=== PATIENT | female | born 1995 | race Caucasian/White ===

== ENCOUNTER → 2018-09-15 | Outpatient (CLI) | payer OTHER ==
[~2018-09-15] MED LIST: ALBU90OI6 INH; ESCI10 PO; FLUO10 PO; FLUSAL1005 INH; FLUSAL2505 INH; IBUP600 PO; IRON240 MG PO; Keflex500 MG PO; MELO7.5 PO; Naprosyn500 MG PO; Norco 5-325 Ta1 EACH PO; Nuvaring Vagin1 EACH VG; QUET25 PO; TOPI50 PO; TRAM50 PO; TRAZ50 PO; Zofran Odt8 MG SL
== END | disposition home or self-care (01) ==
LOC: LAB EV 12:06 → LAB SHORT 12:06
DX: N12 Tubulo-interstitial nephritis, not specified as acute or chronic (principal)
CPT/HCPCS: 87077; 87086; 87186

== ENCOUNTER 2020-07-18 18:28 | Emergency (ER) | payer OTHER ==
[~2020-07-18] VITALS: Ht 162.6 cm; Wt 104.3 kg
[~2020-07-18 18:28] MED LIST changes: +IBUP800 PO; +SERT50 PO
== END 2020-07-18 19:51 | disposition home or self-care (01) ==
LOC: ER 18:28
DX: S83.91XA Sprain of unspecified site of right knee, initial encounter (principal); F17.210 Nicotine dependence, cigarettes, uncomplicated; Z91.040 Latex allergy status; Z91.02 Food additives allergy status; Z91.018 Allergy to other foods; W01.0XXA Fall on same level from slipping, tripping and stumbling without subsequent striking against object, initial encounter
CPT/HCPCS: 73562-RT; 99283-25

== ENCOUNTER → 2020-10-29 | Outpatient (CLI) | payer OTHER | END | disposition home or self-care (01) | LOC: LAB SHORT 15:16 → LAB EV 15:16 | DX: Z33.1 Pregnant state, incidental (principal) | CPT/HCPCS: 84702 ==

== ENCOUNTER 2021-07-01 19:56 | Inpatient (IN) | payer OTHER ==
[~2021-07-01] VITALS: Ht 162.6 cm; Wt 112.7 kg
[2021-07-01] MEDS ORDERED: ESCI10 PO (20:19)
[2021-07-01 20:43] LABS: BASOPHILS ABSOLUTE AUTO 0.08 K/mm3 (0.00-0.23); BASOPHILS PERCENT AUTO 1 % (0-2); EOSINOPHILS ABSOLUTE AUTO 0.21 K/mm3 (0.00-0.68); EOSINOPHILS PERCENT AUTO 2 % (0-6); Hematocrit 34.4 % (33.0-51.0); Hemoglobin 11.3 g/dL (11.5-16.0); IMMATURE GRAN ABSOLUTE AUTO 0.07 K/mm3 (0.00-0.10); IMMATURE GRAN PERCENT AUTO 1 % (0-1); LYMPHOCYTES ABSOLUTE AUTO 3.01 K/mm3 (0.84-5.20); LYMPHOCYTES PERCENT AUTO 30 % (21-46); MONOCYTES ABSOLUTE AUTO 0.66 K/mm3 (0.16-1.47); MONOCYTES PERCENT AUTO 7 % (4-13); Mean Corpuscular HGB 25.1 pg (26.0-34.0); Mean Corpuscular HGB Conc 32.8 g/dL (31.5-36.5); Mean Corpuscular Volume 76 fL (80-100); NEUTROPHILS ABSOLUTE AUTO 5.92 K/mm3 (1.96-9.15); NEUTROPHILS PERCENT AUTO 60 % (41-73); Platelet Count 120 K/mm3 (150-400); RDW Coefficient Variation 14.5 % (11.7-14.2); RDW Standard Deviation 39.5 fL (35.1-46.3); Red Blood Cell Count 4.51 M/mm3 (3.80-5.20); White Blood Cell Count 9.95 K/mm3 (4.00-11.30)
[2021-07-01 21:21] LABS: Influenza A, PCR NEGATIVE (NEGATIVE); Influenza B, PCR NEGATIVE (NEGATIVE); Resp Syncytial Virus, PCR NEGATIVE (NEGATIVE); SARS-Cov-2 (COVID-19) PCR, MMC NEGATIVE (NEGATIVE)
[2021-07-03] MEDS ORDERED: IBUP800 PO (09:16)
[2021-07-03] MEDS ORDERED: PRENATAL TABLE1 EAC2 (09:16)
--- NOTE | 2021-07-03 09:22 | NUR ---
D/C INSTRUCTIONS DISCUSSED AND SIGNED. EXPERIENCED MOM WILLIE NB AND SELF CARE WELL. NO QUESTIONS OR CONCERNS AT THIS TIME. PLAN D/C HOME SOON RIDE ARRIVES.
--- NOTE | 2021-07-03 10:18 | NUR ---
D/C HOME WITH BABY
== END 2021-07-03 10:09 | disposition home or self-care (01) | DRG 807 ==
LOC: OBS 19:56 → BC 19:58 → OBS 20:05 → BC 20:06
PROVIDERS: ADMIT Advanced Practice Midwife
PROC: 10E0XZZ Delivery of Products of Conception, External Approach (ICD-10-PCS; principal; 2021-07-02)
DX: O48.0 Post-term pregnancy (principal); Z37.0 Single live birth; Z3A.40 40 weeks gestation of pregnancy; Z91.040 Latex allergy status; Z88.7 Allergy status to serum and vaccine; Z79.899 Other long term (current) drug therapy
CPT/HCPCS: 0241U; 36415; 85025; 86850; 86900; 86901; A9270; J1885; J2590; J7120

== ENCOUNTER → 2023-10-17 | Outpatient (CLI) | payer OTHER ==
[~2023-10-17] MED LIST changes: +PRENATAL TABLE1 EAC2
[2023-10-17 18:39] LABS: Source, Urine Clean Catch
[2023-10-17 19:37] LABS: Appearance, Urine Clear (Clear); Bilirubin, Urine Neg (Neg); Blood, Urine Neg (Neg); Color, Urine Yellow (P-Yellow); Glucose Qualitative, Urine Neg (Neg); Ketones, Urine 1+ (Neg); Leukocyte Esterase, Urine 3+ (Neg); Nitrite, Urine Pos (Neg); Protein, Urine 1+ (Neg); Urobilinogen, Urine NORM (Normal)
[2023-10-17 19:42] LABS: BASOPHILS ABSOLUTE AUTO 0.07 K/mm3 (0.00-0.23); BASOPHILS PERCENT AUTO 0 % (0-2); EOSINOPHILS ABSOLUTE AUTO 0.18 K/mm3 (0.00-0.68); EOSINOPHILS PERCENT AUTO 1 % (0-6); Hematocrit 35.7 % (33.0-51.0); Hemoglobin 12.1 g/dL (11.5-16.0); IMMATURE GRAN ABSOLUTE AUTO 0.09 K/mm3 (0.00-0.10); IMMATURE GRAN PERCENT AUTO 1 % (0-1); LYMPHOCYTES ABSOLUTE AUTO 2.88 K/mm3 (0.84-5.20); LYMPHOCYTES PERCENT AUTO 18 % (21-46); MONOCYTES ABSOLUTE AUTO 0.65 K/mm3 (0.16-1.47); MONOCYTES PERCENT AUTO 4 % (4-13); Mean Corpuscular HGB Conc 33.9 g/dL (31.5-36.5); Mean Corpuscular Volume 83 fL (80-100); NEUTROPHILS PERCENT AUTO 75 % (41-73); Platelet Count 172 K/mm3 (150-400); RDW Coefficient Variation 14.6 % (11.7-14.2); RDW Standard Deviation 44.1 fL (35.1-46.3); Red Blood Cell Count 4.32 M/mm3 (3.80-5.20); White Blood Cell Count 15.67 K/mm3 (4.00-11.30)
[2023-10-17 19:54] LABS: Bacteria Many /hpf; Red Blood Cells, Urine 0-2 /hpf (0-2); Squamous Epithelial Cells Few /hpf (Few)
[2023-10-19 16:24] LABS: HEPATITIS B SURFACE ANTIGEN Negative (Negative)
[2023-10-19 17:37] LABS: HEPATITIS C AB CIA INTERP Negative (Negative); HEPATITIS C ANTIBODY CIA INDEX <0.02 IV
[2023-10-19 18:05] LABS: HIV 1,2 COMBO ANTIGEN/ANTIBODY Negative (Negative)
== END | disposition home or self-care (01) ==
LOC: LAB SHORT 18:35 → LAB 18:35
PROVIDERS: Registered Nurse Community Health
DX: Z34.91 Encounter for supervision of normal pregnancy, unspecified, first trimester (principal); S91.301A Unspecified open wound, right foot, initial encounter
CPT/HCPCS: 81001; 84443; 86803; 87070; 87075; 87077; 87086; 87147; 87186; 87205; 87340; 87389

== ENCOUNTER → 2024-02-15 | Outpatient (CLI) | payer OTHER | LOC: LAB 12:53 → LAB SHORT 12:53 | DX: Z33.1 Pregnant state, incidental (principal) | CPT/HCPCS: 87081; 87150 ==

== ENCOUNTER 2024-03-17 13:27 | Inpatient (IN) | payer OTHER ==
[~2024-03-17] VITALS: Ht 160 cm; Wt 95.5 kg
[2024-03-17] VITALS (12 sets, daily range): BP systolic 98–131; BP diastolic 55–75
[2024-03-17] MEDS ORDERED: Lactated Ringer's 1,000 ML IV ONE (14:31)
[2024-03-17] MEDS ORDERED: FentaNYL 2mcg/ml-Bup 0.1% Epd 250 ML EPI PRN (14:35)
[2024-03-17] MEDS ORDERED: ePHEDrine Sulfate 50 MG/ML 1ML Injection XX PRN (14:35)
[2024-03-17] MEDS ORDERED: Ondansetron HCl 2 MG / ML 2ML Vial IV PRN (14:35)
[2024-03-17] MEDS ORDERED: Carboprost Tromethamine 250 MCG/ML 1ML Amp IM PRN (14:35)
[2024-03-17] MEDS ORDERED: Methylergonovine Maleate 0.2MG / ML 1ML Amp IM PRN (14:35)
[2024-03-17] MEDS ORDERED: Acetaminophen 500 MG Tab PO PRN (14:35)
[2024-03-17] MEDS ORDERED: Lactated Ringer's 1,000 ML IV PRN (14:35)
[2024-03-17] MEDS ORDERED: Misoprostol 200 MCG Tab PR PRN (14:35)
[2024-03-17] MEDS ORDERED: Oxytocin 10 Unit / ML Vial IM PRN (14:35)
[2024-03-17] MEDS ORDERED: Misoprostol 200 MCG Tab BC PRN (14:35)
[2024-03-17] MEDS ORDERED: OXYTOCIN/RINGER'S LACTATE 500 ML IV PRN (14:35)
[2024-03-17] MEDS ORDERED: Lactated Ringer's 1,000 ML IV SCH ×3 (14:35→20:25)
[2024-03-17] MEDS ORDERED: Tranexamic Acid 100 ML IV SCH (14:35)
[2024-03-17] MEDS ORDERED: Calcium Carbonate 500 MG Tab Chew PO SCH (14:40)
[2024-03-17 14:58] LABS: Hematocrit 33.7 % (33.0-51.0); Hemoglobin 11.4 g/dL (11.5-16.0); Mean Corpuscular HGB 27.9 pg (26.0-34.0); Mean Corpuscular HGB Conc 33.8 g/dL (31.5-36.5); Mean Corpuscular Volume 83 fL (80-100); Platelet Count 156 K/mm3 (150-400); RDW Coefficient Variation 15.9 % (11.7-14.2); RDW Standard Deviation 47.9 fL (35.1-46.3); Red Blood Cell Count 4.08 M/mm3 (3.80-5.20)
[2024-03-17 15:00] LABS: White Blood Cell Count 14.73 K/mm3 (4.00-11.30)
[2024-03-17 15:10] LABS: BASOPHILS ABSOLUTE MAN 0.14 K/mm3 (0.00-0.23); BASOPHILS PERCENT MAN 1 % (0-2); EOSINOPHILS ABSOLUTE MAN 0.14 K/mm3 (0.00-0.68); EOSINOPHILS PERCENT MAN 1 % (0-6); LYMPHOCYTES ABSOLUTE MAN 3.68 K/mm3 (0.84-5.20); LYMPHOCYTES PERCENT MAN 25 % (21-46); MONOCYTES ABSOLUTE MAN 0.73 K/mm3 (0.16-1.47); MONOCYTES PERCENT MAN 5 % (4-13); NEUTROPHILS ABSOLUTE MAN 10.01 K/mm3 (1.96-9.15); SEG NEUTROPHILS PERCENT MAN 68 % (41-73); TOTAL CELLS COUNTED 100
[2024-03-17 16:07] LABS: U Amphetamine Screen Not Detected; U Barbituate Screen Not Detected; U Benzodiazapine Screen Not Detected; U Cannabinoids Screen DETECTED; U Cocaine Screen Not Detected; U Methadone Screen Not Detected; U Methamphetamine Screen Not Detected; U Opiates Screen Not Detected; U Phencyclidine Screen Not Detected
[2024-03-17 16:08] LABS: U Buprenorphine Screen Not Detected; U Oxycodone Screen Not Detected
[2024-03-17] MEDS ORDERED: Nicotine 7 MG PATCH TOP SCH (17:15)
[2024-03-17] MEDS ORDERED: Witch Hazel/Glycerin PADS TOP PRN (20:20)
[2024-03-17] MEDS ORDERED: Ibuprofen 400 MG Tab PO PRN (20:20)
[2024-03-17] MEDS ORDERED: FLU VACC TS2024-25(6MOS UP)/PF 45 MCG/0.5 ML SYRINGE IM SCH (20:20)
[2024-03-17] MEDS ORDERED: Acetaminophen 325 MG TABLET PO PRN (20:20)
[2024-03-17] MEDS ORDERED: Benzocaine Topical Anesthetic Spray 60GM TOP PRN (20:20)
[2024-03-17] MEDS ORDERED: Lanolin Cream TOP PRN (20:20)
[2024-03-17] MEDS ORDERED: Ketorolac Tromethamine 30mg Vial IV PRN (20:25)
[2024-03-18 00:18] VITALS: BP 122/67
[2024-03-18 05:07] VITALS: BP 112/68
[2024-03-18 05:40] LABS: Hematocrit 30.4 % (33.0-51.0); Hemoglobin 10.2 g/dL (11.5-16.0); Mean Corpuscular HGB 27.8 pg (26.0-34.0); Mean Corpuscular HGB Conc 33.6 g/dL (31.5-36.5); Mean Corpuscular Volume 83 fL (80-100); Platelet Count 144 K/mm3 (150-400); RDW Coefficient Variation 16.1 % (11.7-14.2); RDW Standard Deviation 48.3 fL (35.1-46.3); Red Blood Cell Count 3.67 M/mm3 (3.80-5.20)
[2024-03-18 05:51] LABS: White Blood Cell Count 19.36 K/mm3 (4.00-11.30)
[2024-03-18 05:52] LABS: BASOPHILS ABSOLUTE AUTO 0.12 K/mm3 (0.00-0.23); BASOPHILS PERCENT AUTO 1 % (0-2); EOSINOPHILS ABSOLUTE AUTO 0.22 K/mm3 (0.00-0.68); EOSINOPHILS PERCENT AUTO 1 % (0-6); IMMATURE GRAN ABSOLUTE AUTO 0.22 K/mm3 (0.00-0.10); IMMATURE GRAN PERCENT AUTO 1 % (0-1); LYMPHOCYTES ABSOLUTE AUTO 3.88 K/mm3 (0.84-5.20); LYMPHOCYTES PERCENT AUTO 20 % (21-46); MONOCYTES PERCENT AUTO 8 % (4-13); NEUTROPHILS ABSOLUTE AUTO 13.42 K/mm3 (1.96-9.15); NEUTROPHILS PERCENT AUTO 70 % (41-73)
[2024-03-18 07:34] VITALS: BP 116/66
[2024-03-18] MEDS ORDERED: Prenatal Vit/FE Fumarate/FA 1 Tab PO SCH (09:00)
[2024-03-18] MEDS ORDERED: Nicotine 7 MG PATCH TOP SCH (09:00)
[2024-03-18 12:12] VITALS: BP 129/64
[2024-03-18 17:02] VITALS: BP 125/61
[2024-03-18] MEDS ORDERED: Calcium Carbonate 500 MG Tab Chew PO PRN (17:50)
[2024-03-18] MEDS ORDERED: Citalopram Hydrobromide 20 MG Tab PO SCH (18:00)
[2024-03-18 19:19] VITALS: BP 126/58
[2024-03-19 03:38] VITALS: BP 116/57
[2024-03-19] MEDS ORDERED: Omeprazole 20 MG CapCR PO SCH (06:00)
[2024-03-19] MEDS ORDERED: ARIPiprazole 5 MG Tab PO SCH (09:00)
[2024-03-19 09:02] VITALS: BP 122/66
--- NOTE | 2024-03-19 09:10 | NUR ---
PT RIDE WITH CARES IS HER TO TAKE HER TO [place], DC INSTRUCTIONS GONE OVER WITH PT, GAVE EXTRA PADS, HAS COPY OF DC INSTRUCTIONS, TEARFUL OVER BABY BEING IN [place], REPORTS BABY DOING WELL, THEY PLAN A FEW MORE TESTS THIS MORNING FOR BABY. SHE IS READY TO GET UP TO [place] TO SEE BABY. HAS PPFU MADE FOR HER FOR MONDAY. SHE WAS ENCOURAGED TO CALL IF NOT ABLE TO MAKE IT IF NOT WE WOULD BE NOTIFYING CPS. SHE VERBALIZED UNDERSTANDING.
== END 2024-03-19 09:15 | disposition home or self-care (01) | DRG 806 ==
LOC: BC 13:27 → OBS 13:27 → BC 14:31
PROVIDERS: ADMIT Family Medicine
PROC: 10E0XZZ Delivery of Products of Conception, External Approach (ICD-10-PCS; principal; 2024-03-17)
DX: O48.0 Post-term pregnancy (principal); O99.324 Drug use complicating childbirth; Z37.0 Single live birth; Z3A.40 40 weeks gestation of pregnancy; F12.90 Cannabis use, unspecified, uncomplicated; O99.02 Anemia complicating childbirth; Z67.40 Type O blood, Rh positive; O99.62 Diseases of the digestive system complicating childbirth; K21.9 Gastro-esophageal reflux disease without esophagitis; F41.8 Other specified anxiety disorders; O99.344 Other mental disorders complicating childbirth; O99.334 Smoking (tobacco) complicating childbirth; F17.210 Nicotine dependence, cigarettes, uncomplicated; Z88.8 Allergy status to other drugs, medicaments and biological substances; Z91.040 Latex allergy status; Z79.899 Other long term (current) drug therapy
CPT/HCPCS: 36415; 59025; 85025; 86850; 86900; 86901; 99214; A9270; J1885; J2590; J7120